=== PATIENT | male | born 2000 | race Caucasian/White ===

== ENCOUNTER 2022-10-20 16:34 | Emergency (ER) | payer SELFPAY ==
[~2022-10-20] VITALS: Ht 177.8 cm; Wt 92.3 kg
[2022-10-20 16:46] VITALS: BP 137/75
--- NOTE | 2022-10-20 16:55 | NUR ---
COVID, FLU SWABS DONE.
--- NOTE | 2022-10-20 17:01 | NUR ---
C/O FEVER, CHILL, COUGH, N/V/D . HSU, RUNNY NOSE X 4 DAYS AND 6/10 LEFT CHEST PAIN RADIATING TO LEFT ARM X TODAY. COVID TESTED NEGATIVE 3 DAYS AGO.
[2022-10-20 18:34] VITALS: BP 137/75
--- NOTE | 2022-10-20 18:34 | NUR ---
Ubaldo lyles in [facility] - 10/20/22 at 1854 by MEDR PATIENT LEFT WITHOUT BEING SEEN BY DR. CARRILLO. NO FURTHER CARE PROVIDED FOR PATIENT.
--- NOTE | 2022-10-20 18:34 | NUR ---
Ubaldo lyles in [facility] - 10/20/22 at 1907 by [place] LEFT WITHOUT CANDACE PAPERWORK
== END 2022-10-20 18:34 | disposition home or self-care (01) ==
LOC: MED 16:34
DX: B34.9 Viral infection, unspecified (principal); Z20.822 Contact with and (suspected) exposure to COVID-19; R11.2 Nausea with vomiting, unspecified; R50.9 Fever, unspecified; R07.9 Chest pain, unspecified; F17.210 Nicotine dependence, cigarettes, uncomplicated
CPT/HCPCS: 71045; 99284